=== PATIENT | female | born 1960 | race Caucasian/White ===

== ENCOUNTER 2017-02-16 23:05 | Emergency (ER) | payer OTHER ==
[2017-02-17] MEDS ORDERED: PROMETHAZINE HCL 25 MG/ML VIAL IVP ONE (00:44)
[2017-02-17] MEDS ORDERED: KETOROLAC 30 MG/ML VIAL IVP ONE (00:44)
[2017-02-17] MEDS ORDERED: HYDROMORPHONE HCL 1 MG/ML CPJ IVP ONE (00:44)
--- NOTE | 2017-02-17 01:10 | Emergency Department Record ---
History of Present Illness - General Chief complaint: Dental Stated complaint: DENTAL PAIN Time Seen by Provider: 02/17/17 00:32 Source: Patient Mode of Arrival: Ambulatory Limitations: No limitations - History of Present Illness Initial comments: pt states she is having face pain that feels like her previous pain she had when she had a cyst in her face. she had extensive surgery on it a year ago. it has not hurt again until this week MD complaint: Other Onset/Timin -: Week(s) Severity: Severe Severity scale (1-10): 9 Quality: Stabbing Consistency: Constant Improves with: Rest Worsens with: Movement Context- Dental: History of dental caries - Related Data Home Medications Medication Instructions Recorded Confirmed Last Taken Alprazolam [Xanax] 0.5 mg PO QHS PRN 02/16/17 02/16/17 Unknown Dexlansoprazole [Dexilant] 60 mg PO QAM 02/16/17 02/16/17 02/16/17 Escitalopram Oxalate [Lexapro] 20 mg PO QAM 02/16/17 02/16/17 02/16/17 Hydrochlorothiazide 25 mg PO QAM 02/16/17 02/16/17 02/16/17 Ropinirole HCl [Requip] 2 mg PO QHS 02/16/17 02/16/17 02/16/17 Zolpidem Tartrate [Ambien] 10 mg PO QHS 02/16/17 02/16/17 02/16/17 Previous Rx's Medication Instructions Recorded Hydrocodone/Acetaminophen [Lookout 1 each PO QID #10 tablet 02/17/17 5-325 Tablet] Allergies Allergy/AdvReac Type Severity Reaction Status Date / Time No Known Drug Allergies Allergy Verified 02/16/17 23:51 Travel Screening - Travel/Exposure Within Last 30 Days Have you traveled within the last 30 days?: No Review of Systems Reviewed: No additional complaints except as noted below Constitutional: Reports: As per HPI. Denies: Chills, Fever, Malaise, Night sweats, Weakness, Weight change Eyes: Reports: As per HPI. Denies: Eye discharge, Eye pain, Photophobia, Vision change ENT: Reports: As per HPI. Denies: Congestion, Dental pain, Ear pain, Epistaxis , Hearing loss, Throat pain Respiratory: Reports: As per HPI. Denies: Cough, Dyspnea, Hemoptysis, Stridor, Wheezes Cardiovascular: Reports: As per HPI. Denies: Arrhythmia, Chest pain, Dyspnea on exertion, Edema, Murmurs, Orthopnea, Palpitations, Paroxysmal nocturnal dyspnea, Rheumatic Fever, Syncope Endocrine: Reports: As per HPI. Denies: Fatigue, Heat or cold intolerance, Polydipsia, Polyuria Gastrointestinal: Reports: As per HPI. Denies: Abdominal pain, Constipation, Diarrhea, Hematemesis, Hematochezia, Melena, Nausea, Vomiting Genitourinary: Reports: As per HPI. Denies: Abnormal menses, Discharge, Dyspareunia, Dysuria, Frequency, Hematuria, Incontinence, Retention, Urgency Musculoskeletal: Reports: As per HPI. Denies: Arthralgia, Back pain, Gout, Joint swelling, Myalgia, Neck pain Skin: Reports: As per HPI. Denies: Bruising, Change in color, Change in hair/ nails, Lesions, Pruritus, Rash Neurological: Reports: As per HPI. Denies: Abnormal gait, Confusion, Headache, Numbness, Paresthesias, Seizure, Tingling, Tremors, Vertigo, Weakness Psychiatric: Reports: As per HPI. Denies: Anxiety, Auditory hallucinations, Depression, Homicidal thoughts, Suicidal thoughts, Visual hallucinations Hematological/Lymphatic: Reports: As per HPI. Denies: Anemia, Blood Clots, Easy bleeding, Easy bruising, Swollen glands Past Medical History - SOCIAL HISTORY Smoking Status: Light tobacco smoker (<10/day) Alcohol Use: None Drug Use: None - RESPIRATORY Hx Respiratory Disorders: Yes Hx Asthma: Yes - CARDIOVASCULAR Hx Cardio Disorders: No - NEURO Hx Neuro Disorders: No - GI Hx GI Disorders: Yes Hx Reflux: Yes - Hx Genitourinary Disorders: No - ENDOCRINE Hx Endocrine Disorders: No - MUSCULOSKELETAL Hx Musculoskeletal Disorders: No - PSYCH Hx Psych Problems: Yes Hx Anxiety: Yes Hx Depression: Yes - HEMATOLOGY/ONCOLOGY Hx Hematology/Oncology Disorders: No Hx Clotting Problems: Yes (Hx of DVT LLE) Family Medical History Any Significant Family History?: No Physical Exam - General General Appearance: Alert, Oriented x3, Cooperative, Mild distress - Head Head exam: Normal inspection Head exam detail: General tenderness - Eye Eye exam: Normal appearance, PERRL, EOMI Pupils: Normal accommodation - ENT ENT exam: Normal exam, Mucous membranes moist, Normal external ear exam, Normal orophraynx Ear exam: Normal external inspection. negative: External canal tenderness Nasal Exam: Normal inspection. negative: Discharge, Sinus tenderness Mouth exam: Normal external inspection, Tongue normal Teeth exam: Normal inspection. negative: Dental caries Throat exam: Normal inspection. negative: Tonsillar erythema, Tonsillar exudate - Neck Neck exam: Normal inspection, Full ROM. negative: Tenderness - Respiratory Respiratory exam: Normal lung sounds bilaterally. negative: Respiratory distress - Cardiovascular Cardiovascular Exam: Regular rate, Normal rhythm, Normal heart sounds - GI/Abdominal GI/Abdominal exam: Soft, Normal bowel sounds. negative: Tenderness - Rectal Rectal exam: Deferred - exam: Deferred - Extremities Extremities exam: Normal inspection, Full ROM, Normal capillary refill. negative: Tenderness - Back Back exam: Reports: Normal inspection, Full ROM. Denies: Muscle spasm, Rash noted, Tenderness - Neurological Neurological exam: Alert, CN II-XII intact, Normal gait, Oriented X3 - Psychiatric Psychiatric exam: Normal affect, Normal mood - Skin Skin exam: Dry, Intact, Normal color, Warm Medical Decision Making - Lab Data Result diagrams: 02/17/17 01:10 02/17/17 01:10 Disposition Disposition: Discharge Clinical Impression: Bony abnormality Disposition: Home, Self-Care Condition: (1) Good Additional Instructions: follow up with family doctorasap. return sooner if worse Prescriptions: Hydrocodone/Acetaminophen [Lookout 5-325 Tablet] 1 each PO QID #10 tablet Forms: Patient Portal Access
[2017-02-17 01:20] LABS: BASO % 0.5 % (0-6); EOS % 5.9 % (0-6); GRAN % 48.3 % (47-80); HEMATOCRIT 42.6 % (35.0-47.0); HEMOGLOBIN 13.1 gm/dl (11.6-16.0); LYMPH % 35.5 % (16-45); MEAN CELL VOLUME 83.7 fl (81-97); MEAN CORPUSCULAR HEMOGLOBIN 25.7 pg (27-33); MEAN CORPUSCULAR HGB CONC 30.8 g/dl (32-36); MEAN PLATELET VOLUME 11.4 fl (7.4-10.4); MONO % 9.8 % (0-9); PLATELET COUNT 251 K/uL (130-400); RED BLOOD COUNT 5.09 M/uL (3.80-5.40); RED CELL DISTRIBUTION WIDTH 16.6 % (11.5-14.5); WHITE BLOOD COUNT W/O DIFF 9.8 K/uL (4.2-12.2)
[2017-02-17 01:31] LABS: ANION GAP 7.3 (7-16); BLOOD UREA NITROGEN 19 mg/dL (7-17); CARBON DIOXIDE 27.7 mmol/L (22-30); CREATININE 0.9 mg/dL (0.52-1.04); EST GLOMERULAR FILTRATION RATE > 60 ml/min; GLUCOSE,RANDOM 89 mg/dL (70-110)
--- NOTE | 2017-02-17 15:28 | CT SCAN REPORT ---
EXAM: CT SCAN MAXILLOFACIAL WO CONTRAST HISTORY: DENTAL PAIN. TECHNIQUE: Routine noncontrast helical CT examination of the face is performed in the axial plane. Coronal and sagittal reformatted images are generated and reviewed. FINDINGS: No acute fracture is identified. There is an expansile lytic lesion at the junction of the right zygoma and maxillary bones measuring 1.3 x 1.3 x 1.6 cm. Its margins are smooth. There is ground-glass density within. No definite associated soft tissue component. No other lytic or blastic bone lesion is demonstrated. Three metallic implants are noted within the right alveolar ridge of the maxillary bone. One of these mildly deforms the floor of the right maxillary sinus. There is, however, no associated bone destruction nor abnormal fluid within the right maxillary sinus. There is mild mucosal thickening in the superomedial aspects of the maxillary sinuses. The paranasal sinuses are otherwise clear. The ocular globes are intact and symmetrically positioned. The retrobulbar fat is clear. The optic nerves and extraocular muscles are symmetric and normal in appearance. IMPRESSION: 1. EXPANSILE LYTIC LESION VISUALIZED AT THE JUNCTION OF THE RIGHT ZYGOMATIC ARCH AND MAXILLARY BONE. THIS IS OF INDETERMINATE ETIOLOGY AND WHILE THIS MAY REPRESENT FIBROUS DYSPLASIA, MALIGNANCY CANNOT BE EXCLUDED. COMPARISON TO PRIOR EXAMINATIONS, IF ANY EXIST, IS RECOMMENDED. 2. THERE ARE THREE METALLIC IMPLANTS WITHIN THE RIGHT ALVEOLAR RIDGE, ONE OF WHICH CAUSE MILD DEFORMITY OF THE FLOOR OF THE RIGHT MAXILLARY SINUS THOUGH NO ASSOCIATED BONE DESTRUCTION NOR ACUTE FLUID WITHIN THE RIGHT MAXILLARY SINUS. 3. MILD MUCOSAL THICKENING IN THE SUPEROMEDIAL ASPECTS OF EACH MAXILLARY SINUS. JOB NUMBER: [id number] MTDD
== END 2017-02-17 02:50 | disposition home or self-care (01) ==
LOC: ER 23:05
DX: M89.8X8 Other specified disorders of bone, other site (principal); K08.89 Other specified disorders of teeth and supporting structures
CPT/HCPCS: 99284 ×2; 96374; 96375; 85025; 80048; 70486; J1885; J1170; J2550

== ENCOUNTER 2017-11-30 10:23 | Emergency (ER) | payer OTHER ==
[2017-11-30] MEDS ORDERED: DIPHENHYDRAMINE HCL IV 50 MG/ML VIAL IVP ONE ×2 (10:40→11:28)
[2017-11-30] MEDS ORDERED: METOCLOPRAMIDE HCL 10 MG/2 ML VIAL IVP ONE (10:40)
[2017-11-30] MEDS ORDERED: KETOROLAC 30 MG/ML VIAL IVP ONE (10:40)
[2017-11-30] MEDS ORDERED: 0.9 % SODIUM CHLORIDE 1,000 ML BAG IV ONE (10:40)
--- NOTE | 2017-11-30 10:47 | Emergency Department Record ---
History of Present Illness - General Chief complaint: Cold Stated complaint: SINUS INFECTION/FALL/HEADACHE Time Seen by Provider: 11/30/17 10:33 Source: Patient Mode of Arrival: Ambulatory Limitations: No limitations - History of Present Illness Initial comments: The patient states she is here due to having a migraine CALDERA for the last 2 days with frequent nausea and vomiting. She states the pain onset was gradual and the pain is over the top and front of her head. There is no reported fever, neck pain, CP, SOB, visual changes or AP. The patient states she has a long hx of similar CALDERA's and has been prescribed Imitrex for it but it is not helping. She also fell 3 days ago on her L side but did not hit her head. MD complaint: Other Onset/Timin -: Days(s) Severity scale (1-10): 8 Quality: Aching Consistency: Constant Improves with: None Worsens with: None Context- Dental: Other Associated Symptoms: Cough, Sore throat, Other - Related Data Home Medications Medication Instructions Recorded Confirmed Last Taken Butalbital/Aspirin/Caffeine 1 each PO ASDIR 11/30/17 11/30/17 Unknown [Zccdah-Qvuzrdy-Pvnkh 50-325-40] Sumatriptan [Imitrex] 5 mg NS ASDIR 11/30/17 11/30/17 Unknown Previous Rx's Medication Instructions Recorded Doxycycline Monohydrate [Mondoxyne 100 mg PO BID #20 capsule 11/30/17 Nl] Fluconazole [Diflucan] 150 mg PO ONCE #1 tab 11/30/17 Potassium Chloride 20 meq PO DAILY #14 tab.er.prt 11/30/17 Allergies Allergy/AdvReac Type Severity Reaction Status Date / Time No Known Drug Allergies Allergy Verified 02/16/17 23:51 Travel Screening - Travel/Exposure Within Last 30 Days Have you traveled within the last 30 days?: No Review of Systems Constitutional: Denies: Chills, Fever Eyes: Denies: Eye discharge ENT: Denies: Congestion Respiratory: Denies: Cough, Dyspnea Past Medical History - SOCIAL HISTORY Smoking Status: Heavy tobacco smoker (>10/day) Alcohol Use: None Drug Use: None - RESPIRATORY Hx Respiratory Disorders: Yes Hx Asthma: Yes - CARDIOVASCULAR Hx Cardio Disorders: No - NEURO Hx Neuro Disorders: No - GI Hx GI Disorders: Yes Hx Reflux: Yes - Hx Genitourinary Disorders: No - ENDOCRINE Hx Endocrine Disorders: No - MUSCULOSKELETAL Hx Musculoskeletal Disorders: No - PSYCH Hx Psych Problems: Yes Hx Anxiety: Yes Hx Depression: Yes - HEMATOLOGY/ONCOLOGY Hx Hematology/Oncology Disorders: No Hx Clotting Problems: Yes (Hx of DVT LLE) Family Medical History Any Significant Family History?: No Physical Exam - General General Appearance: Alert, Oriented x3, Cooperative, No acute distress - Head Head exam: Atraumatic, Normocephalic, Normal inspection - Eye Eye exam: Normal appearance, PERRL - ENT Throat exam: Tonsillar erythema. negative: Normal inspection, Tonsillomegaly, Tonsillar exudate - Neck Neck exam: Normal inspection, Full ROM. negative: Lymphadenopathy, Meningismus , Tenderness - Respiratory Respiratory exam: Normal lung sounds bilaterally. negative: Respiratory distress - Cardiovascular Cardiovascular Exam: Regular rate, Normal rhythm, Normal heart sounds - GI/Abdominal GI/Abdominal exam: Soft, Normal bowel sounds. negative: Tenderness - Extremities Extremities exam: Full ROM, Normal capillary refill, Tenderness (There is mild L knee tenderness with anterior knee bruising. ). negative: Normal inspection - Back Back exam: Reports: Normal inspection - Neurological Neurological exam: Alert, Normal gait, Oriented X3. negative: Abnormal gait, Altered, Motor sensory deficit Course Vital Signs 11/30/17 10:26 Temperature 98.4 F Pulse Rate 103 H Respiratory 20 Rate Blood Pressure 140/87 Pulse Ox 97 - Reevaluation(s) Reevaluation #1: The patient is doing a lot better at this time. Her CALDERA is >50% improved but she is feeling mildly anxious most likely from the Reglan. We will give her an extra dose of Benadryl to counteract it. 11/30/17 11:31 Reevaluation #2: The patient is doing a lot better at this time. Her CALDERA has basically resolved and her anxiety is now gone also. She is up walking normally with no problems or difficulty. I did discuss the need for Doxycycline for her presumed sinus infection along with potassium for the hypokalemia. 11/30/17 12:41 Reevaluation #3: The patient is doing very well at this time. Her repeat temp is normal and her gait steady with a normal temp. Her Rhomberg and Drift exams are neg and she is ready for home. 11/30/17 12:47 Medical Decision Making - Lab Data Result diagrams: 11/30/17 10:49 11/30/17 10:49 Disposition Disposition: Discharge Clinical Impression: Migraine Qualifiers: Migraine type: unspecified Status migrainosus presence: without status migrainosus Intractability: not intractable Qualified Code(s): G43.909 - Migraine, unspecified, not intractable, without status migrainosus Disposition: Home, Self-Care Condition: (2) Stable Instructions: Migraine Headache (ED) Additional Instructions: Please continue your regular medicines and take the Doxycycline and Potassium as directed. Please see your family doctor in 3-5 days for recheck and to redraw a serum potassium. Return to the ER for any worsening issues or problems. Prescriptions: Doxycycline Monohydrate [Mondoxyne Nl] 100 mg PO BID #20 capsule Fluconazole [Diflucan] 150 mg PO ONCE #1 tab Potassium Chloride 20 meq PO DAILY #14 tab.er.prt Forms: Patient Portal Access Time of Disposition: 12:44 Quality - Quality Measures Quality Measures: Headache - Headache: Neuroimaging Quality Measure: Measure #419: Overuse of Neuroimaging ICD10 Codes Entered: Yes View Detail: Yes Neurological Exam: Patient had a normal neurological exam. [G9535] Headache: Use of Neuroimaging: < CTA, CT, MRA or MRI was NOT ordered > [G9534] - Blood Pressure Screening View Details: Yes Does Patient Have Any of the Following: No Blood Pressure Classification: Normal BP Reading Systolic Measurement: 106 Diastolic Measurement: 54 Screening for High Blood Pressure: < Normal BP, F/U Not Required > [G8783]
[2017-11-30 10:56] LABS: HEMATOCRIT 42.7 % (35.0-47.0); HEMOGLOBIN 13.6 gm/dl (11.6-16.0); MEAN CELL VOLUME 84.2 fl (81-97); MEAN CORPUSCULAR HEMOGLOBIN 26.8 pg (27-33); MEAN CORPUSCULAR HGB CONC 31.9 g/dl (32-36); PLATELET COUNT 270 K/uL (130-400); RED BLOOD COUNT 5.07 M/uL (3.80-5.40); RED CELL DISTRIBUTION WIDTH 16.4 % (11.5-14.5); WHITE BLOOD COUNT W/O DIFF 19.6 K/uL (4.2-12.2)
[2017-11-30 11:05] LABS: BLOOD UREA NITROGEN 13 mg/dL (6-20); CREATININE 0.7 mg/dL (0.5-0.9); EST GLOMERULAR FILTRATION RATE > 60 mL/min
[2017-11-30 11:06] LABS: TOTAL PROTEIN 7.5 g/dL (6.6-8.7)
[2017-11-30 11:08] LABS: GLUCOSE,RANDOM 168 mg/dL (74-109)
[2017-11-30 11:11] LABS: ALB/GLOB RATIO 1.2 (1.1-1.8); ALBUMIN 4.1 g/dL (4.0-5.0); ALKALINE PHOSPHATASE 110 U/L (35-104); ALT/SGPT 15 U/L (<33); AST/SGOT 20 U/L (10.0-35.0)
[2017-11-30] MEDS ORDERED: POTASSIUM CHLORIDE 20 MEQ TABLET PO ONE (11:25)
[2017-11-30] MEDS ORDERED: LORAZEPAM 2 MG/ML VIAL IV ONE (12:03)
== END 2017-11-30 12:57 | disposition home or self-care (01) ==
LOC: ER 10:23
DX: G43.909 Migraine, unspecified, not intractable, without status migrainosus (principal); R11.0 Nausea; R05 Cough; J02.9 Acute pharyngitis, unspecified; F17.210 Nicotine dependence, cigarettes, uncomplicated
CPT/HCPCS: 99284 ×2; 96376; 96374; 96375; 80053; 85027; J1885; J2060; J1200; J2765; J7030

== ENCOUNTER 2018-08-12 10:03 | Emergency (ER) | payer OTHER ==
--- NOTE | 2018-08-12 10:31 | Emergency Department Record ---
History of Present Illness - General Chief complaint: Vomiting Stated complaint: VOMITING Time Seen by Provider: 08/12/18 10:18 Source: Patient Mode of Arrival: Ambulatory Limitations: No limitations - History of Present Illness Initial comments: The patient is here due to intermittent vomiting for at least 6 months. Initially it was off and on and for the last 6 weeks or so it has been more often. Now she seems to be vomiting daily. The patient states the onset is will a bad coughing fit and then she will vomit. She denies any recent CP, SOB, AP, fever, chills, or back pain. She did have an EGD 2-3 years ago and was told she possibly had an ulcer. The patient does have a PCP but she is retiring in a week and will need a new one. MD complaint: Nausea, Vomiting Onset/Timin -: Month(s) Description of Vomiting: Bilious Associated Abdominal Pain: No Consistency: Intermittent Improves with: None Worsens with: None Associated Symptoms: Denies other symptoms - Related Data Home Medications Medication Instructions Recorded Confirmed Last Taken Escitalopram Oxalate [Lexapro] 1 tab PO DAILY 08/12/18 08/12/18 Unknown Allergies Allergy/AdvReac Type Severity Reaction Status Date / Time No Known Drug Allergies Allergy Verified 02/16/17 23:51 Travel Screening - Travel/Exposure Within Last 30 Days Have you traveled within the last 30 days?: No - Travel/Exposure Within Last Year Have you traveled outside the [place] in the last year?: No - Additonal Travel Details Have you been exposed to anyone with a communicable illness?: No - Travel Symptoms Symptom Screening: None Review of Systems Constitutional: Denies: Chills, Fever Eyes: Denies: Eye discharge ENT: Denies: Congestion Respiratory: Denies: Cough, Dyspnea Past Medical History - SOCIAL HISTORY Smoking Status: Heavy tobacco smoker (>10/day) Alcohol Use: None Drug Use: Occasional Drug Use Detail:: Marijuana - RESPIRATORY Hx Respiratory Disorders: Yes Hx Asthma: Yes - CARDIOVASCULAR Hx Cardio Disorders: No - NEURO Hx Neuro Disorders: No - GI Hx GI Disorders: Yes Hx Reflux: Yes - Hx Genitourinary Disorders: No - ENDOCRINE Hx Endocrine Disorders: No - MUSCULOSKELETAL Hx Musculoskeletal Disorders: No - PSYCH Hx Psych Problems: Yes Hx Anxiety: Yes Hx Depression: Yes - HEMATOLOGY/ONCOLOGY Hx Hematology/Oncology Disorders: No Hx Clotting Problems: Yes (Hx of DVT LLE) Family Medical History Any Significant Family History?: No Physical Exam - General General Appearance: Alert, Oriented x3, Cooperative, No acute distress - Head Head exam: Atraumatic, Normocephalic, Normal inspection - Eye Eye exam: Normal appearance, PERRL, EOMI - ENT Throat exam: Normal inspection. negative: Tonsillar erythema, Tonsillar exudate - Neck Neck exam: Normal inspection, Full ROM. negative: Tenderness - Respiratory Respiratory exam: Normal lung sounds bilaterally. negative: Respiratory distress - Cardiovascular Cardiovascular Exam: Regular rate, Normal rhythm, Normal heart sounds - GI/Abdominal GI/Abdominal exam: Soft, Normal bowel sounds. negative: Rebound, Rigid, Tenderness - Extremities Extremities exam: Normal inspection, Full ROM, Normal capillary refill. negative: Tenderness - Neurological Neurological exam: Alert. negative: Motor sensory deficit Course Vital Signs 08/12/18 10:07 Temperature 97.8 F Pulse Rate 84 Respiratory 20 Rate Blood Pressure 149/97 Pulse Ox 100 - Reevaluation(s) Reevaluation #1: The patient is doing very well at this time. She is resting comfortably with no pain or vomiting. I did get the patient an appointment [facility] for tomorrow with Dr. Paniagua. 08/12/18 11:32 Medical Decision Making - Data Complexity MDM Data: Labs Ordered and/or Reviewed, X-Ray Ordered and/or Reviewed - Lab Data Result diagrams: 08/12/18 10:34 08/12/18 10:34 - Radiology Data Radiology results: Report reviewed (CXR: Neg.) Disposition Disposition: Discharge Clinical Impression: Vomiting Qualifiers: Vomiting type: unspecified Vomiting Intractability: non-intractable Nausea presence: with nausea Qualified Code(s): R11.2 - Nausea with vomiting, unspecified Disposition: Home, Self-Care Condition: (2) Stable Instructions: Acute Nausea and Vomiting (ED) Additional Instructions: Please continue your regular medicines and please see Dr. Paniagua tomorrow in the [facility]. Return to the ER for any worsening symptoms. Referrals: [facility] [Provider Group] Forms: Patient Portal Access Time of Disposition: 11:36 Quality - Quality Measures Quality Measures: N/A - Blood Pressure Screening View Details: Yes Does Patient Have Any of the Following: No Blood Pressure Classification: Hypertensive Reading Systolic Measurement: 149 Diastolic Measurement: 97 Screening for High Blood Pressure: < First Hypertensive BP, F/U Documented > [ G8950] First Hypertensive Follow-up Interventions: Referral to alternative/primary care provider.
[2018-08-12 10:40] LABS: EOS % 3.9 % (0-6); GRAN % 57.8 % (47-80); HEMATOCRIT 40.4 % (35.0-47.0); HEMOGLOBIN 12.8 gm/dl (11.6-16.0); LYMPH % 28.6 % (16-45); MEAN CELL VOLUME 83.3 fl (81-97); MEAN CORPUSCULAR HEMOGLOBIN 26.4 pg (27-33); MEAN CORPUSCULAR HGB CONC 31.7 g/dl (32-36); MEAN PLATELET VOLUME 10.7 fl (7.4-10.4); MONO % 8.7 % (0-9); PLATELET COUNT 298 K/uL (130-400); RED BLOOD COUNT 4.85 M/uL (3.80-5.40); RED CELL DISTRIBUTION WIDTH 15.8 % (11.5-14.5); WHITE BLOOD COUNT W/O DIFF 7.9 K/uL (4.2-12.2)
[2018-08-12 10:50] LABS: BLOOD UREA NITROGEN 19 mg/dL (6-20)
[2018-08-12 10:51] LABS: CREATININE 0.8 mg/dL (0.5-0.9); EST GLOMERULAR FILTRATION RATE > 60 mL/min; TOTAL PROTEIN 7.2 g/dL (6.6-8.7)
[2018-08-12 10:53] LABS: GLUCOSE,RANDOM 122 mg/dL (74-109)
[2018-08-12 10:56] LABS: ALB/GLOB RATIO 1.3 (1.1-1.8); ALKALINE PHOSPHATASE 110 U/L (35-104); ALT/SGPT 14 U/L (<33); AST/SGOT 18 U/L (10.0-35.0)
--- NOTE | 2018-08-13 13:49 | RADIOLOGY REPORT ---
DATE: 08/12/2018. EXAM: TWO-VIEW, CHEST. HISTORY: DIFFICULTY IN BREATHING. TECHNIQUE: Frontal and lateral views of the chest were performed. FINDINGS: Heart size is normal. No pulmonary vascular congestion. No infiltrate or pleural effusion. The osseous structures are normal. IMPRESSION: NO ACUTE DISEASE PROCESS. JOB NUMBER: [id number] MTDD
== END 2018-08-12 11:45 | disposition home or self-care (01) ==
LOC: ER 10:03
DX: R11.2 Nausea with vomiting, unspecified (principal); R05 Cough; F17.210 Nicotine dependence, cigarettes, uncomplicated
CPT/HCPCS: 71046; 80053; 85025; 99283; 99284

== ENCOUNTER 2019-09-26 19:22 | Emergency (ER) | payer BC ==
[2019-09-26] MEDS ORDERED: DIPHENHYDRAMINE HCL 50 MG/ML VIAL IVP ONE (19:44)
[2019-09-26] MEDS ORDERED: METOCLOPRAMIDE HCL 10 MG/2 ML VIAL IVP ONE (19:44)
[2019-09-26] MEDS ORDERED: KETOROLAC 30 MG/ML VIAL IVP ONE (19:44)
[2019-09-26] MEDS ORDERED: 0.9 % SODIUM CHLORIDE 1000ML 1,000 ML IV SCH (19:45)
--- NOTE | 2019-09-26 19:50 | Emergency Department Record ---
History of Present Illness - General Chief Complaint: Headache Migraine Time Seen by Provider: 09/26/19 19:44 Source: Patient Mode of Arrival: Ambulatory Limitations: No limitations - History of Present Illness Initial Comments: 59 yo female presents to ED for evaluation of a migraine headache that began this morning associated with sinus pressure, pain symptoms today. Patient reports nausea, vomiting this morning, denies abdominal pain or use of anticoagulation medications. Patient reports a history of similar symptoms with previous migraine headache episodes, denies use of anticoagulation medications or neck stiffness symptoms. MD Complaint: Headache, "Migraine" Onset/Timin -: Days(s) Onset Description: At rest Location: Facial, Frontal Severity: Moderate Quality: Sharp, Throbbing Consistency: Constant Improves With: Nothing Worsens With: Light Treatments Prior to Arrival: Migraine medication - Related Data Previous Rx's Medication Instructions Recorded Amoxicillin [Amoxil] 875 mg PO BID #20 tab 09/26/19 Allergies Allergy/AdvReac Type Severity Reaction Status Date / Time No Known Drug Allergies Allergy Unverified 06/01/19 10:44 Travel Screening - Travel/Exposure Within Last 30 Days Have you traveled within the last 30 days?: No - Travel/Exposure Within Last Year Have you traveled outside the [place] in the last year?: No - Additonal Travel Details Have you been exposed to anyone with a communicable illness?: No - Travel Symptoms Symptom Screening: Headache Review of Systems Constitutional: Denies: Chills, Fever, Malaise, Night sweats Eyes: Denies: Eye discharge, Eye pain ENT: Denies: Congestion, Ear pain, Epistaxis Respiratory: Denies: Cough, Dyspnea Cardiovascular: Denies: Chest pain, Dyspnea on exertion Endocrine: Denies: Fatigue, Heat or cold intolerance Gastrointestinal: Reports: Nausea, Vomiting. Denies: Abdominal pain, Constipation Genitourinary: Denies: Incontinence, Retention Musculoskeletal: Denies: Arthralgia, Back pain Skin: Denies: Bruising, Change in color Neurological: Reports: Headache. Denies: Abnormal gait, Confusion, Seizure Psychiatric: Denies: Anxiety Hematological/Lymphatic: Denies: Anemia, Blood Clots Past Medical History - SOCIAL HISTORY Smoking Status: Heavy tobacco smoker (>10/day) Alcohol Use: None Drug Use: None - RESPIRATORY Hx Respiratory Disorders: Yes Hx Asthma: Yes - CARDIOVASCULAR Hx Cardio Disorders: No - NEURO Hx Neuro Disorders: No - GI Hx GI Disorders: Yes Hx Reflux: Yes - Hx Genitourinary Disorders: No - ENDOCRINE Hx Endocrine Disorders: No - MUSCULOSKELETAL Hx Musculoskeletal Disorders: No - PSYCH Hx Psych Problems: Yes Hx Anxiety: Yes Hx Depression: Yes - HEMATOLOGY/ONCOLOGY Hx Hematology/Oncology Disorders: No Hx Clotting Problems: Yes (Hx of DVT LLE) Family Medical History Any Significant Family History?: No Physical Exam - General General Appearance: Alert, Oriented x3, Cooperative, Mild distress Limitations: No limitations - Head Head exam: Atraumatic, Normocephalic, Normal inspection Head exam detail: negative: Abrasion, Contusion, Rivera's sign, General tenderness, Hematoma, Laceration - Eye Eye exam: Normal appearance. negative: Conjunctival injection, Periorbital swelling, Periorbital tenderness, Scleral icterus - ENT Ear exam: negative: Auricular hematoma, Auricular trauma Nasal Exam: negative: Active bleeding, Discharge, Dried blood, Foreign body Mouth exam: negative: Drooling, Laceration, Muffled voice, Tongue elevation - Neck Neck exam: Normal inspection. negative: Meningismus, Tenderness - Respiratory Respiratory exam: Normal lung sounds bilaterally. negative: Rales, Respiratory distress, Rhonchi, Stridor - Cardiovascular Cardiovascular Exam: Regular rate, Normal rhythm, Normal heart sounds - GI/Abdominal GI/Abdominal exam: Soft. negative: Rebound, Rigid, Tenderness - Rectal Rectal exam: Deferred - exam: Deferred - Extremities Extremities exam: Normal inspection. negative: Pedal edema, Tenderness - Back Back exam: Denies: CVA tenderness (R), CVA tenderness (L) - Neurological Neurological exam: Alert, Normal gait, Oriented X3 - Psychiatric Psychiatric exam: Normal affect, Normal mood - Skin Skin exam: Normal color. negative: Abrasion Type of lesion: negative: abrasion Course - Reevaluation(s) Reevaluation #1: 09/26/19 21:33 Patient was reassessed, reports that her headache symptoms are significantly improved. Patient reports that she is ready to go home at this time. Amoxicillin was sent to the pharmacy for treatment of sinusitis. Disposition Disposition: Discharge Clinical Impression: Acute headache Qualifiers: Headache type: unspecified Intractability: not intractable Qualified Code(s): R51 - Headache Sinusitis Qualifiers: Sinusitis location: frontal Chronicity: acute Recurrence: non-recurrent Qualified Code(s): J01.10 - Acute frontal sinusitis, unspecified Disposition: Home, Self-Care Condition: (2) Stable Instructions: Acute Headache (ED) Additional Instructions: Return to ED if your symptoms worsen or if you have any concerns. Amoxicillin as directed. Follow-up with your family doctor in 3-5 days as directed. Prescriptions: Amoxicillin [Amoxil] 875 mg PO BID #20 tab Forms: Patient Portal Access Time of Disposition: 19:50 Quality - Quality Measures Quality Measures: N/A - Blood Pressure Screening Does Patient Have Any of the Following: No Blood Pressure Classification: Hypertensive Reading Systolic Measurement: 136 Diastolic Measurement: 96 Screening for High Blood Pressure: < First Hypertensive BP, F/U Documented > [G8950] First Hypertensive Follow-up Interventions: Referral to alternative/primary care provider.
== END 2019-09-26 21:50 | disposition home or self-care (01) ==
LOC: ER 19:22
DX: R51 Headache (principal); J01.10 Acute frontal sinusitis, unspecified; R11.2 Nausea with vomiting, unspecified; F17.210 Nicotine dependence, cigarettes, uncomplicated
CPT/HCPCS: 96374; 96375; 99284; J1200; J1885; J2765; J7030